=== PATIENT | male | born 1975 | race Caucasian/White ===

== ENCOUNTER 2016-12-29 11:38 | Observation (INO) | payer OTHER ==
[~2016-12-29] VITALS: Ht 180.3 cm; Wt 118.2 kg
[~2016-12-29 11:38] MED LIST: ACCUPRIL20 MG PO; ADVICOR PO; ALBUTEROL17 GM IH; ASPIRIN E.C.81 M1 PO; ASPIRIN81 M1 PO; Advair HFA 115/21 IH; CELEBREX200 MG PO; FLOVENT 22120 INHALA IH; Habitrol,Nicoderm CQ TD; Levaquin PO; NEXIUM40 MG PO; SPIRIVA1 INHALATI IH; Tessalon Perle PO; ZOCOR10 MG PO; Zocor PO; predniSONE PO
[2016-12-29 12:37] LABS: EOSINOPHIL (%) 1.1 % (0-5); EOSINOPHIL COUNT 0.1 K/uL (0-0.3); HEMATOCRIT 41.1 % (38.0-50.0); IMMATURE GRANULOCYTE (%) 1.1 % (0.0-0.7); IMMATURE GRANULOCYTE COUNT 0.1 K/uL; INSTRUMENT ABS NEUTROPHIL CT 6.2 K/uL; LYMPHOCYTE COUNT 1.3 K/uL (1.0-2.8); MCH 27.8 PG (29.0-34.0); MCHC 32.4 G/DL (30.0-36.0); MCV 85.8 FL (86-99); MONOCYTE (%) 4.5 % (3-12); MONOCYTE COUNT 0.4 K/uL (0-0.8); NEUTROPHIL COUNT 6.2 K/uL (1.8-6.4); PLATELET COUNT 159 K/uL (156-360); RBC DIS.WIDTH-SD 43.5 % (39-53); RED BLOOD COUNT 4.79 M/uL (4.00-5.50); WHITE BLOOD COUNT 8.1 K/uL (4.1-10.2)
[2016-12-29 12:43] LABS: CHLORIDE 110 mEq/L (99-109); POTASSIUM 3.8 mEq/L (3.7-5.4); SODIUM 144 mEq/L (136-147)
[2016-12-29 12:45] LABS: GLUCOSE 99 mg/dL (70-99)
[2016-12-29 12:46] LABS: ANION GAP 9 MEQ/L (2-14)
[2016-12-29 12:47] LABS: TOTAL BILIRUBIN 0.6 mg/dL (0.0-1.0)
[2016-12-29 12:48] LABS: ALKALINE PHOSPHATASE 64 IU/L (3-129)
[2016-12-29 12:49] LABS: GFR ESTIMATE (CALCULATED) > 59 mL/min/
[2016-12-29 12:50] LABS: UREA NITROGEN (BUN) 9 mg/dL (9-23)
[2016-12-29 12:55] LABS: TROP-I INTERPRETATION NEGATIVE; TROPONIN-I < 0.01 ng/mL (0.0-0.30)
[2016-12-29] MEDS ORDERED: LO-DOSE ASPIRIN81 M2 PO (13:19)
[2016-12-29] MEDS ORDERED: OTEZLA30 MG PO (13:21)
[2016-12-29] MEDS ORDERED: LYRICA100 MG PO (13:21)
[2016-12-29] MEDS ORDERED: SINGULAIR10 MG PO (13:22)
[2016-12-29] MEDS ORDERED: ALLEGRA ALLERG180 MG PO (13:22)
[2016-12-29 14:29] VITALS: BP 127/72
[2016-12-29 15:37] VITALS: BP 133/61
[2016-12-29 18:14] LABS: TROP-I INTERPRETATION NEGATIVE; TROPONIN-I < 0.01 ng/mL (0.0-0.30)
[2016-12-29 21:00] VITALS: BP 142/72
[2016-12-29 23:47] VITALS: BP 128/56
[2016-12-30 00:45] LABS: TROP-I INTERPRETATION NEGATIVE; TROPONIN-I < 0.01 ng/mL (0.0-0.30)
[2016-12-30 04:57] VITALS: BP 123/65
[2016-12-30 06:08] LABS: HEMATOCRIT 38.7 % (38.0-50.0); MCH 27.4 PG (29.0-34.0); MCHC 31.5 G/DL (30.0-36.0); MCV 86.8 FL (86-99); MEAN PLAT.VOLUME 10.6 uM^3 (9.0-12.4); PLATELET COUNT 149 K/uL (156-360); RBC DIS.WIDTH-CV 14.2 % (11.8-14.6); RED BLOOD COUNT 4.46 M/uL (4.00-5.50); WHITE BLOOD COUNT 7.2 K/uL (4.1-10.2)
== END 2016-12-30 08:53 | disposition home or self-care (01) ==
LOC: EME 11:38 → EDOF 13:40 → 5WEST 14:20
PROVIDERS: Emergency Medicine; Internal Medicine
DX: R07.89 Other chest pain (principal); I10 Essential (primary) hypertension; E78.5 Hyperlipidemia, unspecified; D86.9 Sarcoidosis, unspecified; J45.909 Unspecified asthma, uncomplicated; L40.59 Other psoriatic arthropathy; E66.01 Morbid (severe) obesity due to excess calories; K21.9 Gastro-esophageal reflux disease without esophagitis; F32.9 Major depressive disorder, single episode, unspecified; F41.9 Anxiety disorder, unspecified; G47.30 Sleep apnea, unspecified; Z87.891 Personal history of nicotine dependence; G62.9 Polyneuropathy, unspecified; Z68.36 Body mass index [BMI] 36.0-36.9, adult
CPT/HCPCS: 71010; 80053; 84484; 85025; 85027; 93005; 94660; 99281; 99285; G0378

== ENCOUNTER 2017-02-11 09:27 | Day surgery (SDC) | payer OTHER ==
[~2017-02-11] VITALS: Ht 180.3 cm; Wt 181.0 kg
[~2017-02-11 09:27] MED LIST changes: +ALLEGRA ALLERG180 MG PO; +LO-DOSE ASPIRIN81 M2 PO; +LYRICA100 MG PO; +OTEZLA30 MG PO; +SINGULAIR10 MG PO
== END 2017-02-11 19:10 | disposition home or self-care (01) ==
LOC: CATH 09:27
DX: R07.9 Chest pain, unspecified (principal); I10 Essential (primary) hypertension; E78.5 Hyperlipidemia, unspecified; D86.9 Sarcoidosis, unspecified; G47.30 Sleep apnea, unspecified
CPT/HCPCS: 85347; C1750; C1760; C1769; C1887; C1894; J1200; J1644; J2250; J3010